=== PATIENT | female | born 1965 | race Caucasian/White ===

== ENCOUNTER 2017-11-28 13:19 | Inpatient (IN) | payer OTHER ==
[~2017-11-28] VITALS: Ht 162.6 cm; Wt 77.1 kg
[~2017-11-28 13:19] MED LIST: ACETAMINOPHEN-1 EAC1 PO; AMOXICILLIN500 M1 PO; ATENOLOL 100MG100 M2; ATENOLOL 100MG100 M2 PO; ATENOLOL 100MG100 MG PO; BACTRIM DS TAB1 EACH PO; ESKALITH300 MG; HYDROCODONE-AP1 EAC6 PO; IRON325 PO; KEFLEX500 M1 PO; LAMICTAL 25 MG25 MG PO; NORVASC 5 MG TAB5 MG; NORVASC 5 MG TAB5 MG PO; NORVASC5 MG PO; PAXIL20 MG; REQUIP1 MG PO; ROBAXIN500 MG PO; TRAZODONE 150150 M1; VISTARIL 25 MG25 M1; ZOLOFT 50 MG TA50 M1 PO
[2017-11-28 13:30] VITALS: BP 186/129
[2017-11-28 13:53] LABS: URINE BILIRUBIN NEGATIVE (Negative); URINE BLOOD 3+ (Negative); URINE CLARITY CLEAR; URINE COLOR YELLOW; URINE GLUCOSE-RANDOM NEGATIVE (Negative); URINE KETONES NEGATIVE (Negative); URINE LEUKOCYTES-REFLEX TRACE (Negative); URINE NITRITE-REFLEX NEGATIVE (Negative); URINE PROTEIN TRACE (Negative); URINE SPECIFIC GRAVITY 1.025 (1.005-1.030); URINE UROBILINOGEN 0.2 E.U./dl (0.2-1.0)
[2017-11-28 13:58] LABS: BACTERIA-REFLEX 1-9 Few /HPF (None Seen); CASTS None Seen /LPF (None Seen); CRYSTALS None Seen /LPF (None Seen); MUCUS None Seen strn/LPF (None Seen); SQUAMOUS 0-3 Few /LPF (0-3); URINE WBC-REFLEX 0-5 Rare /HPF (0-5)
[2017-11-28 14:00] LABS: AMP/METHAMP POSITIVE (Negative); BARBITURATES Negative (Negative); BENZODIAZEPINES Negative (Negative); COCAINE Negative (Negative); METHADONE Negative (Negative); OPIATES Negative (Negative); PCP Negative (Negative); THC Negative (Negative)
[2017-11-28 14:02] LABS: ABSOLUTE BASOPHILS 0.1 thou/uL (0.0-0.2); ABSOLUTE EOSINOPHILS 0.1 thou/uL (0.0-0.7); ABSOLUTE LYMPHOCYTES 1.7 thou/uL (0.8-5.3); ABSOLUTE MONOCYTES 0.5 thou/uL (0.0-1.2); ABSOLUTE NEUTROPHILS 5.6 thou/uL (1.6-8.1); BASOPHILS 0.9 %; EOSINOPHILS 1.2 %; HEMATOCRIT 33.7 % (37.0-47.0); HEMOGLOBIN 10.9 gm/dL (12.0-15.0); LYMPHOCYTES 21.5 %; MCH 23.8 pg (26.0-34.0); MCHC 32.3 g/dL (28.0-37.0); MCV 73.7 fL (80.0-100.0); MONOCYTES 6.6 %; MPV 7.9 fl. (7.2-11.1); NUCLEATED RBCS 0 /100WBC; PLATELET COUNT* 269 thou/uL (150-400); POLYS 69.8 %; RBC 4.57 mil/uL (4.20-5.00); RDW-CV 19.2 % (10.5-14.5)
[2017-11-28 14:10] LABS: ANION GAP 9 mmol/L (7-16); BUN 12 mg/dL (7-18); CALCIUM 8.2 mg/dL (8.5-10.1); CHLORIDE 104 mmol/L (98-107); CO2 25 mmol/L (21-32); CREATININE 0.9 mg/dL (0.6-1.3); GLUCOSE 136 mg/dL (70-99); POTASSIUM 3.6 mmol/L (3.5-5.1); SODIUM 138 mmol/L (136-145)
[2017-11-28 14:20] LABS: ALBUMIN 3.1 g/dL (3.4-5.0); ALKALINE PHOSPHATASE 225 U/L (46-116); LIPASE 142 U/L (73-393); SGOT 156 U/L (15-37); SGPT 197 U/L (30-65); TOTAL BILIRUBIN 0.5 mg/dL (<0.1-1.0); TOTAL PROTEIN 7.8 g/dL (6.4-8.2); TROPONIN-I LEVEL <0.06 ng/mL (<0.06)
--- NOTE | 2017-11-28 16:10 | EKG ---
[place] [address] ELECTROCARDIOGRAM REPORT Name: MARIOMONICA Go Room: [facility]#: [id number] Admission: 11/28/17 Attend Phys: Discharge: Date of : 63 Report #: [id number] THIS REPORT FOR: //name// [facility] ED Test Date: 2017-11-28 Test Time: 13:25:24 Pat Name: MONICA MARTIN Department: Room: Gender: F Counter Maker: NATY : 1965 Requested By: Cadence Reid Order Number: [id number] MD: Karan Porter Measurements Intervals [place] Rate: 93 P: 89 MA: 183 QRS: 32 QRSD: 92 T: 98 QT: 384 QTc: 478 Interpretive Statements Sinus rhythm Biatrial enlargement consider Anterior infarct, old Compared to ECG 08/07/2015 22:06:46 Left ventricular hypertrophy no longer present Electronically Signed On 11-28-2017 16:10:28 CDT by Karan Porter [email or web address] <ELECTRONICALLY SIGNED> By: Karan Porter MD, [facility] 11/28/17 1610 D: 045 1325 Karan Porter MD, FACC /EPI
[2017-11-28 16:43] VITALS: BP 150/87
[2017-11-28 17:00] VITALS: BP 156/91
--- NOTE | 2017-11-28 18:05 | NUR ---
VSS, ASSUMED CARE OF PT FROM ER, ASSESSMENT PERFROMED AND CHARTED, FALL PRECAUTIONS IN PLACE AND CALL LIGHT IN REACH, PT IS A&O4 AND ON 2L NC AND UP AD BARBARA, PT DENIES ANY PAIN AT THIS TIME, PT IS TRACING SR ON THE MONITOR AND HER GOAL IS TO IMPROVE BREATHING, WILL FOLLOW WITH PLAN OF CARE.
[2017-11-28 20:00] VITALS: BP 164/94
[2017-11-28 23:40] VITALS: BP 165/98
--- NOTE | 2017-11-29 01:54 | NUR ---
PT ALERT ORIENTED. O2 AT 2 LITERS N/C. NO SOB NOTED. TELEMETRY SHOWS SR. WILL CONTINUE TO MONITOR. PT SHOWED NURSE HER R THUMB WITH A SMALL SCRATCH <0.5 CM. PT STATED IT HURT. ANTIBIOTIC OINT ORDERED AND PLACED ON THUMB. WILL CONTINUE TO MONITOR.
[2017-11-29 03:47] VITALS: BP 169/100
[2017-11-29 04:53] LABS: ABSOLUTE BASOPHILS 0.1 thou/uL (0.0-0.2); ABSOLUTE EOSINOPHILS 0.2 thou/uL (0.0-0.7); ABSOLUTE LYMPHOCYTES 1.8 thou/uL (0.8-5.3); ABSOLUTE MONOCYTES 0.6 thou/uL (0.0-1.2); ABSOLUTE NEUTROPHILS 6.2 thou/uL (1.6-8.1); BASOPHILS 0.6 %; EOSINOPHILS 2.3 %; HEMATOCRIT 34.3 % (37.0-47.0); HEMOGLOBIN 11.1 gm/dL (12.0-15.0); LYMPHOCYTES 19.9 %; MCH 23.9 pg (26.0-34.0); MCHC 32.5 g/dL (28.0-37.0); MCV 73.7 fL (80.0-100.0); MONOCYTES 6.6 %; MPV 8.6 fl. (7.2-11.1); NUCLEATED RBCS 0 /100WBC; PLATELET COUNT* 272 thou/uL (150-400); POLYS 70.6 %; RBC 4.65 mil/uL (4.20-5.00); RDW-CV 19.3 % (10.5-14.5); WBC 8.8 thou/uL (4.0-11.0)
[2017-11-29 05:11] LABS: CALCIUM 8.4 mg/dL (8.5-10.1); CREATININE 0.9 mg/dL (0.6-1.3); POTASSIUM 3.3 mmol/L (3.5-5.1)
--- NOTE | 2017-11-29 07:04 | NUR ---
AM K+ LEVEL 3.3. ELECTROLYTE REPLACEMENT ORDERED.
[2017-11-29 07:07] LABS: HEPATITIS B SURFACE AG Negative (Negative)
[2017-11-29 08:00] VITALS: BP 143/84
[2017-11-29 10:59] LABS: TROPONIN-I LEVEL <0.06 ng/mL (<0.06)
[2017-11-29 11:40] VITALS: BP 151/88
[2017-11-29 12:10] LABS: ALBUMIN 3.1 g/dL (3.4-5.0); DIRECT BILIRUBIN 0.2 mg/dL (<0.1-0.3); TOTAL BILIRUBIN 0.5 mg/dL (<0.1-1.0); TOTAL PROTEIN 7.4 g/dL (6.4-8.2)
--- NOTE | 2017-11-29 12:29 | NUR ---
PT REQUESTED TO DISCHARGE. DR MANJARREZ CONTACTED AND STATED PT MAY LEAVE AMA. PT EDUCATED ON THE RISK OF LEAVING AGAINST MEDICAL ADVICE. PT STATED 'I DON'T CARE, JUST GET THIS IV OUT OF ME.' IV AND SIGN PAINTER HELPER REMOVED. PT TOOK ALL PERSONAL BELONGINGS WHEN SHE LEFT. THIS NURSE ENCOURAGED PT TO STAY AND AT LEAST COMPLETE ORDERED MRI, BUT PT REFUSED. PT LEFT THE FLOOR AT 1234.
--- NOTE | 2017-11-29 14:43 | 2DMMODE ---
[place] [address] 2 D/M-MODE ECHOCARDIOGRAM Name: MARIOMONICA R Room: [address] IN [facility]#: [id number] Admission: 11/28/17 Attend Phys: Jamie Garcia, Discharge: 11/29/17 Date of : 63 Date of Service: 11/29/17 1442 Report #: [id number] THIS REPORT FOR: //name// APPROVED REPORT Study performed: 11/29/2017 09:51:39 EXAM: Comprehensive 2D, Doppler, and color-flow Echocardiogram Patient Location: In-Patient Room #: [facility] Status: routine BSA: 1.85 HR: 84 bpm BP: 147/76 mmHg Rhythm: NSR Other Information Study Quality: Good Indications Congestive Heart Failure 2D Dimensions LVEF(%): 52.47 (>50%) IVSd: 17.17 (7-11mm) LVOT Diam: 19.58 (18-24mm) LVDd: 45.32 mm PWd: 12.38 (7-11mm) Ascending Ao: 33.05 (22-36mm) LVDs: 33.17 (25-40mm) Aortic Root: 30.13 mm Tran's LVEF: 52.47 % Volumes Left Atrial Volume (Systole) LA ESV Index: 56.40 mL/m2 Aortic Valve AoV Peak Carlos Manuel.: 1.49 m/s AO Peak Gr.: 8.84 mmHg LVOT Max P.29 mmHg AO Mean Gr.: 5.56 mmHg LVOT Mean P.27 mmHg LVOT Max V: 1.25 m/s AO V2 VTI: 24.05 cm LVOT Mean V: 0.84 m/s CHACHA (VTI): 2.69 cm2 LVOT V1 VTI: 21.51 cm Mitral Valve E/A Ratio: 1.44 [place] [address] 2 D/M-MODE ECHOCARDIOGRAM Name: MARIOMONICA R Room: [address]#: [id number] Admission: 11/28/17 Attend Phys: Jamie Garcia, Discharge: 11/29/17 Date of : 63 Date of Service: 11/29/17 1442 Report #: [id number] MV Decel. Time: 211.34 ms MV E Max Carlos Manuel.: 1.17 m/s MV PHT: 61.29 ms MVA (PHT): 3.59 cm2 TDI E/Lateral E': 14.63 E/Medial E': 14.63 Medial E' Carlos Manuel.: 0.08 m/s Lateral E' Carlos Manuel.: 0.08 m/s Pulmonary Valve PV Peak Carlos Manuel.: 1.19 m/s PV Peak Gr.: 5.62 mmHg Tricuspid Valve TR Peak Gr.: 42.70 mmHg RVSP: 47.00 mmHg Left Ventricle The left ventricle is normal size. There is normal LV segmental wall motion. Mild concentric left ventricular hypertrophy. Left ventricular systolic function is normal. LVEF is 55-60%. Transmitral Doppler flow pattern suggests impaired LV relaxation. Right Ventricle Right ventricle is mildly dilated. The right ventricular systolic function is normal. Atria Left atrium is moderately dilated. Right atrium is mildly dilated. Aortic Valve Mild aortic valve sclerosis. Mild aortic regurgitation. There is no aortic valvular stenosis. Mitral Valve There is mitral annular calcification. Moderate mitral regurgitation. No evidence of mitral valve stenosis. Tricuspid Valve The tricuspid valve is normal in structure. Trace tricuspid regurgitation. The RVSP is 45-50 mmHg. Pulmonic Valve The pulmonary valve is normal in structure. Trace [place] [address] 2 D/M-MODE ECHOCARDIOGRAM Name: MONICA MARTIN Room: [address] IN [facility]#: [id number] Admission: 11/28/17 Attend Phys: Jamie Garcia, Discharge: 11/29/17 Date of : 63 Date of Service: 11/29/17 1442 Report #: [id number] Great Vessels The aortic root is normal in size. IVC is normal in size and collapses with >50% inspiration Pericardium There is no pericardial effusion. <Conclusion> The left ventricle is normal size. Mild concentric left ventricular hypertrophy. Left ventricular systolic function is normal. LVEF is 55-60%. Transmitral Doppler flow pattern suggests impaired LV relaxation. Right ventricle is mildly dilated. Left atrium is moderately dilated. Right atrium is mildly dilated. Mild aortic valve sclerosis. Mild aortic regurgitation. There is mitral annular calcification. Moderate mitral regurgitation. Trace tricuspid regurgitation. The RVSP is 45-50 mmHg. <ELECTRONICALLY SIGNED> By: Sathish Cohen MD, FACC 11/29/17 1442 1442 1442 Sathish Cohen MD, FACC /INF
== END 2017-11-29 12:34 | disposition home or self-care (01) | DRG 196 ==
LOC: M.ERS 13:19 → M.TBA-ER 16:06 → M.2W 16:06
PROVIDERS: Personal Emergency Response Attendant; ADMIT Internal Medicine
DX: J84.89 Other specified interstitial pulmonary diseases (principal); J18.9 Pneumonia, unspecified organism; I10 Essential (primary) hypertension; F31.9 Bipolar disorder, unspecified; G25.81 Restless legs syndrome; F17.210 Nicotine dependence, cigarettes, uncomplicated; J44.9 Chronic obstructive pulmonary disease, unspecified; K75.9 Inflammatory liver disease, unspecified; I16.0 Hypertensive urgency; K76.89 Other specified diseases of liver; Z79.899 Other long term (current) drug therapy

== ENCOUNTER 2018-06-14 21:02 | Emergency (ER) | payer OTHER ==
[~2018-06-14] VITALS: Ht 160 cm; Wt 81.6 kg
[2018-06-14 21:23] LABS: ABSOLUTE BASOPHILS 0.1 thou/uL (0.0-0.2); ABSOLUTE EOSINOPHILS 0.2 thou/uL (0.0-0.7); ABSOLUTE LYMPHOCYTES 2.1 thou/uL (0.8-5.3); ABSOLUTE MONOCYTES 0.7 thou/uL (0.0-1.2); ABSOLUTE NEUTROPHILS 5.8 thou/uL (1.6-8.1); BASOPHILS 1.5 %; EOSINOPHILS 2.3 %; HEMATOCRIT 40.5 % (37.0-47.0); HEMOGLOBIN 13.3 gm/dL (12.0-15.0); LYMPHOCYTES 23.8 %; MCH 27.5 pg (26.0-34.0); MCHC 32.9 g/dL (28.0-37.0); MCV 83.7 fL (80.0-100.0); MONOCYTES 7.4 %; MPV 8.3 fl. (7.2-11.1); NUCLEATED RBCS 0 /100WBC; PLATELET COUNT* 221 thou/uL (150-400); RBC 4.83 mil/uL (4.20-5.00); RDW-CV 16.9 % (10.5-14.5); WBC 8.9 thou/uL (4.0-11.0)
[2018-06-14 21:35] LABS: INR 1.1; PROTIME 11.2 Seconds (9.20-11.50)
[2018-06-14 21:36] LABS: ANION GAP 12 mmol/L (7-16); BUN 19 mg/dL (7-18); CALCIUM 9.5 mg/dL (8.5-10.1); CHLORIDE 103 mmol/L (98-107); CO2 26 mmol/L (21-32); CREATININE 0.8 mg/dL (0.6-1.3); GLUCOSE 127 mg/dL (70-99); POTASSIUM 3.7 mmol/L (3.5-5.1); SODIUM 141 mmol/L (136-145)
[2018-06-14 21:55] LABS: ALBUMIN 3.4 g/dL (3.4-5.0); ALKALINE PHOSPHATASE 174 U/L (46-116); CK-MB MASS 4.1 ng/mL (<0.5-3.6); LIPASE 205 U/L (73-393); MAGNESIUM 1.8 mg/dL (1.8-2.4); NT-PRO BRAIN NAT PEPTIDE 1138 pg/mL (<300); SGOT 82 U/L (15-37); SGPT 118 U/L (30-65); TOTAL BILIRUBIN 0.5 mg/dL (<0.1-1.0); TOTAL PROTEIN 7.3 g/dL (6.4-8.2); TROPONIN-I LEVEL <0.06 ng/mL (<0.06)
[2018-06-14] MEDS ORDERED: ZESTORETIC 20-1 EACH PO (23:06)
[2018-06-14 23:15] VITALS: BP 187/127
--- NOTE | 2018-06-15 17:26 | EKG ---
[place] [address] ELECTROCARDIOGRAM REPORT Name: MONICA MARTIN Room: [facility]#: [id number] Admission: 06/14/18 Attend Phys: Discharge: 06/14/18 Date of : 63 Report #: [id number] THIS REPORT FOR: //name// [facility] ED Test Date: 2018-06-14 Test Time: 21:09:16 Pat Name: MONICA MARTIN Department: Room: Gender: F Presentation Specialist: ZURI : 1965 Requested By: Shankar Mills Order Number: [id number] MD: Sathish Cohen Measurements Intervals [place] Rate: 86 P: 66 IN: 159 QRS: 26 QRSD: 103 T: 75 QT: 418 QTc: 500 Interpretive Statements Sinus rhythm Biatrial enlargement Left ventricular hypertrophy ST elev, probable normal early repol pattern Borderline prolonged QT interval Compared to ECG 11/28/2017 13:25:24 Left ventricular hypertrophy now present ST (T wave) deviation now present Myocardial infarct finding no longer present Electronically Signed On 06-15-2018 17:26:16 DIAMOND WHEEL EDGER by Sathish Cohen [email or web address] <ELECTRONICALLY SIGNED> By: Sathish Cohen MD, FACC 06/15/18 1726 08 08 Sathish Cohen MD, FACC /EPI
== END 2018-06-14 23:16 | disposition home or self-care (01) ==
LOC: M.ERS 21:02
PROVIDERS: Family Medicine
DX: R00.2 Palpitations (principal); R05 Cough; F17.210 Nicotine dependence, cigarettes, uncomplicated; I10 Essential (primary) hypertension; F31.9 Bipolar disorder, unspecified; G25.81 Restless legs syndrome; M19.90 Unspecified osteoarthritis, unspecified site; Z98.890 Other specified postprocedural states; Z90.13 Acquired absence of bilateral breasts and nipples

== ENCOUNTER 2018-10-03 22:34 | Emergency (ER) | payer OTHER ==
[~2018-10-03] VITALS: Ht 162.6 cm; Wt 79.4 kg
[~2018-10-03 22:34] MED LIST changes: +ZESTORETIC 20-1 EACH PO
[2018-10-03] MEDS ORDERED: HYDROCHLOROTHIA25 M2 PO (22:40)
[2018-10-03] MEDS ORDERED: ACETAMINOPHEN-1 EAC1 PO (23:25)
[2018-10-03] MEDS ORDERED: BACTRIM DS TAB1 EACH PO (23:25)
[2018-10-03] MEDS ORDERED: KEFLEX500 M1 PO (23:25)
[2018-10-03 23:43] VITALS: BP 166/89
== END 2018-10-03 23:45 | disposition home or self-care (01) ==
LOC: M.ERS 22:34
DX: L02.01 Cutaneous abscess of face (principal); L03.211 Cellulitis of face; I10 Essential (primary) hypertension; F31.9 Bipolar disorder, unspecified; M19.90 Unspecified osteoarthritis, unspecified site; Z98.890 Other specified postprocedural states; F17.210 Nicotine dependence, cigarettes, uncomplicated

== ENCOUNTER 2018-10-06 16:16 | Inpatient (IN) | payer OTHER ==
[~2018-10-06] VITALS: Ht 162.6 cm; Wt 85.0 kg
[~2018-10-06 16:16] MED LIST changes: +HYDROCHLOROTHIA25 M2 PO
[2018-10-06 16:23] VITALS: BP 157/94
[2018-10-06 17:11] LABS: ABSOLUTE BASOPHILS 0.1 thou/uL (0.0-0.2); ABSOLUTE EOSINOPHILS 0.4 thou/uL (0.0-0.7); ABSOLUTE LYMPHOCYTES 2.1 thou/uL (0.8-5.3); ABSOLUTE MONOCYTES 0.5 thou/uL (0.0-1.2); ABSOLUTE NEUTROPHILS 6.4 thou/uL (1.6-8.1); BASOPHILS 1.2 %; HEMATOCRIT 40.2 % (37.0-47.0); HEMOGLOBIN 13.4 gm/dL (12.0-15.0); LYMPHOCYTES 21.9 %; MCH 27.6 pg (26.0-34.0); MCHC 33.4 g/dL (28.0-37.0); MCV 82.6 fL (80.0-100.0); MONOCYTES 5.7 %; MPV 7.9 fl. (7.2-11.1); NUCLEATED RBCS 0 /100WBC; PLATELET COUNT* 360 thou/uL (150-400); POLYS 67.2 %; RBC 4.86 mil/uL (4.20-5.00); RDW-CV 16.5 % (10.5-14.5); WBC 9.6 thou/uL (4.0-11.0)
[2018-10-06 17:29] LABS: URINE BILIRUBIN NEGATIVE (Negative); URINE BLOOD 3+ (Negative); URINE CLARITY CLOUDY; URINE COLOR YELLOW; URINE GLUCOSE-RANDOM NEGATIVE (Negative); URINE KETONES NEGATIVE (Negative); URINE LEUKOCYTES-REFLEX 1+ (Negative); URINE NITRITE-REFLEX NEGATIVE (Negative); URINE PROTEIN 1+ (Negative); URINE SPECIFIC GRAVITY 1.025 (1.005-1.030); URINE UROBILINOGEN 0.2 E.U./dl (0.2-1.0)
[2018-10-06 17:31] LABS: ALBUMIN 3.1 g/dL (3.4-5.0); ALKALINE PHOSPHATASE 162 U/L (46-116); ANION GAP 8 mmol/L (7-16); BUN 13 mg/dL (7-18); CALCIUM 9.3 mg/dL (8.5-10.1); CHLORIDE 101 mmol/L (98-107); CO2 27 mmol/L (21-32); CREATININE 0.9 mg/dL (0.6-1.3); GLUCOSE 120 mg/dL (70-99); POTASSIUM 3.8 mmol/L (3.5-5.1); SGOT 32 U/L (15-37); SGPT 47 U/L (30-65); SODIUM 136 mmol/L (136-145); TOTAL BILIRUBIN 0.3 mg/dL (<0.1-1.0); TOTAL PROTEIN 8.8 g/dL (6.4-8.2); TROPONIN-I LEVEL <0.06 ng/mL (<0.06)
[2018-10-06 17:35] LABS: AMP/METHAMP POSITIVE (Negative); BARBITURATES Negative (Negative); BENZODIAZEPINES Negative (Negative); COCAINE Negative (Negative); METHADONE Negative (Negative); OPIATES POSITIVE (Negative); PCP Negative (Negative); THC Negative (Negative)
[2018-10-06 17:46] LABS: URINE RBC >20 Many /HPF (0-2)
[2018-10-06 17:47] LABS: URINE WBC-REFLEX 6-15 Few /HPF (0-5)
[2018-10-06 17:48] LABS: CASTS None Seen /LPF (None Seen); MUCUS None Seen strn/LPF (None Seen); SQUAMOUS 0-3 Few /LPF (0-3)
[2018-10-06 17:49] LABS: BACTERIA-REFLEX 1-9 Few /HPF (None Seen); CRYSTALS None Seen /LPF (None Seen)
[2018-10-06 21:19] VITALS: BP 154/88
[2018-10-07] VITALS: BP 152/85
[2018-10-07 10:20] VITALS: BP 154/88
[2018-10-07 15:30] VITALS: BP 180/100
[2018-10-07 20:15] VITALS: BP 156/90
[2018-10-08 01:11] VITALS: BP 182/92
[2018-10-08 04:07] LABS: MCH 27.7 pg (26.0-34.0); MCHC 33.3 g/dL (28.0-37.0); MCV 83.2 fL (80.0-100.0); MPV 7.9 fl. (7.2-11.1); RBC 4.69 mil/uL (4.20-5.00); RDW-CV 16.4 % (10.5-14.5); WBC 7.1 thou/uL (4.0-11.0)
[2018-10-08 04:23] LABS: ALBUMIN 2.7 g/dL (3.4-5.0); CALCIUM 9.4 mg/dL (8.5-10.1); CREATININE 0.8 mg/dL (0.6-1.3); MAGNESIUM 1.9 mg/dL (1.8-2.4); POTASSIUM 4.3 mmol/L (3.5-5.1); TOTAL BILIRUBIN 0.4 mg/dL (<0.1-1.0); TOTAL PROTEIN 7.4 g/dL (6.4-8.2)
[2018-10-08 07:50] VITALS: BP 180/87
--- NOTE | 2018-10-08 15:00 | EKG ---
[place] [address] ELECTROCARDIOGRAM REPORT Name: MONICA MARTIN Room: [address] ADM IN .R.#: [id number] Admission: 10/06/18 Attend Phys: Marie Barnes MD Discharge: Date of : 63 Report #: [id number] THIS REPORT FOR: //name// [facility] ED Test Date: 2018-10-06 Test Time: 16:43:53 Pat Name: MONICA MARTIN Department: Room: [facility] Gender: F Reducing Salon Attendant: Tim LION : 1965 Requested By: Torri Grimaldo Order Number: [id number] MD: Sathish Cohen Measurements Intervals [place] Rate: 94 P: 80 ME: 148 QRS: 30 QRSD: 105 T: 63 QT: 400 QTc: 501 Interpretive Statements Sinus tachycardia Atrial premature complexes Biatrial enlargement Left ventricular hypertrophy Borderline prolonged QT interval Compared to ECG 06/14/2018 21:09:16 Atrial premature complex(es) now present Sinus rhythm no longer present ST (T wave) deviation no longer present Electronically Signed On 10-08-2018 15:00:37 CDT by Sathish Cohen [email or web address] <ELECTRONICALLY SIGNED> By: Sathish Cohen MD, FACC 10/08/18 1500 1643 1643 Sathish Cohen MD, FACC /EPI
[2018-10-08 17:16] VITALS: BP 179/94
--- NOTE | 2018-10-08 19:46 | CON ---
[address] [address] CONSULTATION Name: MONICA MARTIN Go Room: [address] ADM IN M.R.#: [id number] Admission: 10/06/18 Attend Phys: Marie Barnes MD Discharge: Date of : 63 Report #: [id number] THIS REPORT FOR: //name// CC: THALIA physician/PCP Marie Barnes DATE OF SERVICE: 10/07/2018 REASON FOR CONSULTATION: I was asked to evaluate concerning right facial abscess. HISTORY OF PRESENT ILLNESS: The patient was a 52-year-old who presented on 10/03/2018 with right facial pain. She had a small pimple to her baptist, and she placed a pin in the region to drain it, subsequently developed increased pain and swelling. Facial swelling progressed, and she went to the Emergency Room for further intervention. She had had the area lanced. Cultures are now growing MRSA. She was treated with Bactrim and cephalexin. The swelling worsened, and she returned on 10/06/2018. She was placed on vancomycin and ceftriaxone. No fever, chills or sweats. Pain is significant. She also reports a history of methamphetamine use intravenously. She is an active user. ALLERGIES: None. MEDICATIONS: As noted on MAR including vancomycin and ceftriaxone. PAST MEDICAL HISTORY: C-sections, breast reduction, hypertension, bipolar disorder, basal cell carcinoma, restless leg syndrome, carpal tunnel syndrome, arthritis. FAMILY HISTORY: Noncontributory. SOCIAL HISTORY: She is a smoker of cigarettes, daily alcohol use and recreational drug use. REVIEW OF SYSTEMS: No cardiopulmonary, GI or complaints. PHYSICAL EXAMINATION: VITAL SIGNS: Afebrile and hemodynamically stable. Alert and cooperative. HEENT: Right facial swelling, mostly over the right frontotemporal region. There was a fluctuant area, which was exquisitely tender. Surrounding erythema. Edema in the periorbital region. Extraocular movements intact. Pupils equal, round and reactive to light. No conjunctival injection or scleral icterus. Mouth without mucositis or lesion. NECK: Supple. LUNGS: Clear. HEART: Regular, [place] [address] CONSULTATION Name: MONICA MARTIN Room: [address] IN [facility]#: [id number] Admission: 10/06/18 Attend Phys: Marie Barnes MD Discharge: Date of : 63 Report #: [id number] EXTREMITIES: Had track romo to the left forearm. LABORATORY STUDIES: CT scan of the head showed no intracranial abnormality with right periorbital soft tissue swelling. Facial bones showed the same with no definite focal abscess. She also had some mucosal changes in the right maxillary, ethmoid with small air fluid level in the maxillary sinus. Blood cultures are negative today. Drug screen positive for methamphetamines, opiates and alcohol. Creatinine 0.9. Liver function test normal. Hemoglobin 13.4, WBC 9.6 and platelet count 360,000. IMPRESSION: 1. A 52-year-old with right facial abscess, MRSA. 2. IV drug use. 3. Right maxillary sinusitis. RECOMMENDATION: 1. We will continue vancomycin. Warm compress to her right face and elevation. If no improvement, we will need incision and drainage. 2. Add decongestants and mucolytics. <ELECTRONICALLY SIGNED> By: Rj Stout MD 10/08/18 1946 1638 1522Dantionette Stout MD /nt
[2018-10-09] VITALS: BP 178/90
[2018-10-09 04:33] LABS: ABSOLUTE BASOPHILS 0.1 thou/uL (0.0-0.2); ABSOLUTE EOSINOPHILS 0.5 thou/uL (0.0-0.7); ABSOLUTE LYMPHOCYTES 2.3 thou/uL (0.8-5.3); ABSOLUTE MONOCYTES 0.7 thou/uL (0.0-1.2); BASOPHILS 1.3 %; EOSINOPHILS 6.2 %; HEMATOCRIT 41.1 % (37.0-47.0); HEMOGLOBIN 13.8 gm/dL (12.0-15.0); LYMPHOCYTES 30.2 %; MCH 27.9 pg (26.0-34.0); MCHC 33.6 g/dL (28.0-37.0); MCV 82.9 fL (80.0-100.0); MONOCYTES 9.1 %; MPV 7.9 fl. (7.2-11.1); NUCLEATED RBCS 0 /100WBC; PLATELET COUNT* 343 thou/uL (150-400); POLYS 53.2 %; RBC 4.95 mil/uL (4.20-5.00); RDW-CV 16.2 % (10.5-14.5); WBC 7.5 thou/uL (4.0-11.0)
[2018-10-09 04:53] LABS: CALCIUM 9.3 mg/dL (8.5-10.1); CREATININE 0.8 mg/dL (0.6-1.3); MAGNESIUM 1.9 mg/dL (1.8-2.4); PHOSPHORUS* 4.3 mg/dL (2.5-4.9); POTASSIUM 4.1 mmol/L (3.5-5.1)
[2018-10-09 07:30] VITALS: BP 176/99
[2018-10-09 10:20] VITALS: BP 176/99
[2018-10-09 13:02] LABS: CALCIUM 9.6 mg/dL (8.5-10.1); CREATININE 0.8 mg/dL (0.6-1.3); POTASSIUM 4.3 mmol/L (3.5-5.1)
[2018-10-09 14:25] VITALS: BP 146/92
--- NOTE | 2018-10-09 15:15 | EKG ---
[place] [address] ELECTROCARDIOGRAM REPORT Name: MARIA E MARTINNathan Stiles Room: [address] ADM IN .R.#: [id number] Admission: 10/06/18 Attend Phys: Marie Barnes MD Discharge: Date of : 63 Report #: [id number] THIS REPORT FOR: //name// [facility] Test Date: 2018-10-09 Test Time: 11:59:41 Pat Name: MONICA MARTIN Department: Room: [facility] Gender: F [employer] System Director: : 1965 Requested By: Meaghan Cortés Order Number: [id number] Reading MD: Karan Porter Measurements Intervals [place] Rate: 83 P: 62 AR: 150 QRS: 22 QRSD: 101 T: 62 QT: 440 QTc: 517 Interpretive Statements Sinus rhythm Supraventricular complexes KIMI, consider biatrial enlargement Left ventricular hypertrophy ST elev, probable normal early repol pattern Prolonged QT interval Compared to ECG 10/06/2018 16:43:53 no change Electronically Signed On 10-09-2018 15:15:21 CDT by Karan Porter [email or web address] <ELECTRONICALLY SIGNED> By: Karan Porter MD, FAC 10/09/18 1515 1159 1159 Karan Porter MD, [facility] /EPI
--- NOTE | 2018-10-09 16:11 | 2DMMODE ---
[place] [address] 2 D/M-MODE ECHOCARDIOGRAM Name: MARIOMARIA E MARCELINOI Room: [address] IN [facility]#: [id number] Admission: 10/06/18 Attend Phys: Marie Barnes, Discharge: Date of : 63 Date of Service: 10/09/18 1611 Report #: [id number] THIS REPORT FOR: //name// APPROVED REPORT Study performed: 10/09/2018 14:52:27 EXAM: Comprehensive 2D, Doppler, and color-flow Echocardiogram Patient Location: In-Patient Room #: [facility] Status: routine BSA: 1.85 HR: 85 bpm BP: 176/99 mmHg Rhythm: NSR Other Information Study Quality: Good Indications Abnormal ECG Palpitations 2D Dimensions IVSd: 14.66 (7-11mm) LVOT Diam: 18.91 (18-24mm) LVDd: 48.25 mm PWd: 11.40 (7-11mm) Ascending Ao: 31.25 (22-36mm) LVDs: 33.73 (25-40mm) Aortic Root: 30.92 mm Volumes Left Atrial Volume (Systole) LA ESV Index: 41.20 mL/m2 Aortic Valve AoV Peak Carlos Manuel.: 1.54 m/s AO Peak Gr.: 9.49 mmHg LVOT Max P.02 mmHg AO Mean Gr.: 5.58 mmHg LVOT Mean P.01 mmHg LVOT Max V: 1.23 m/s AO V2 VTI: 22.88 cm LVOT Mean V: 0.80 m/s CHACHA (VTI): 2.21 cm2 LVOT V1 VTI: 17.98 cm TDI Medial E' Carlos Manuel.: 0.06 m/s Lateral E' Carlos Manuel.: 0.09 m/[place] [address] 2 D/M-MODE ECHOCARDIOGRAM Name: MONICA MARTIN Room: [address] IN .R.#: [id number] Admission: 10/06/18 Attend Phys: Marie Barnes, Discharge: Date of : 63 Date of Service: 10/09/18 1611 Report #: [id number] Pulmonary Valve PV Peak Carlos Manuel.: 1.01 m/s PV Peak Gr.: 4.12 mmHg Left Ventricle The left ventricle is normal size. There is normal LV segmental wall motion. Moderate concentric left ventricular hypertrophy. Left ventricular systolic function is normal. The left ventricular ejection fraction is within the normal range. LVEF is 65-70%. The left ventricular diastolic function is normal. Right Ventricle The right ventricle is normal size. The right ventricular systolic function is normal. Atria Left atrium is moderately dilated. The right atrium size is normal. Aortic Valve The aortic valve is normal in structure. No aortic regurgitation is present. There is no aortic valvular stenosis. Mitral Valve The mitral valve is normal in structure. Moderate mitral regurgitation. No evidence of mitral valve stenosis. Tricuspid Valve The tricuspid valve is normal in structure. Trace tricuspid regurgitation. Unable to assess PA pressure. Pulmonic Valve The pulmonary valve is normal in structure. There is no pulmonic valvular regurgitation. Great Vessels The aortic root is normal in size. IVC is normal in size and collapses >50% with inspiration. Pericardium There is no pericardial effusion. <Conclusion> Moderate concentric left ventricular hypertrophy. LVEF is 65-70%. [place] [address] 2 D/M-MODE ECHOCARDIOGRAM Name: MONICA MARTIN Room: [address] IN .R.#: [id number] Admission: 10/06/18 Attend Phys: Marie Barnes, Discharge: Date of : 63 Date of Service: 10/09/181610 Report #: [id number] Left atrium is moderately dilated. Moderate mitral regurgitation. <ELECTRONICALLY SIGNED> By: Karan Porter MD, [facility] 10/09/181610 10 1611 Karan Porter MD, FACC /INF
[2018-10-09 19:50] VITALS: BP 164/89
[2018-10-10] VITALS (8 sets, daily range): BP systolic 154–182; BP diastolic 92–117
--- NOTE | 2018-10-10 15:49 | OP ---
[address] [address] OPERATIVE REPORT Name: MONICA MARTIN Room: [address] IN M.R.#: [id number] Admission: 10/06/18 Attend Phys: Marie Barnes MD Discharge: Date of : 63 Report #: [id number] THIS REPORT FOR: //name// CC: [facility] physician/PCP Marie Barnes DATE OF SERVICE: 10/09/2018 PREOPERATIVE DIAGNOSIS: Methicillin-resistant Staphylococcus aureus abscess, right face. POSTOPERATIVE DIAGNOSIS: Methicillin-resistant Staphylococcus aureus abscess, right face. SURGEON: Meaghan Cortés DO. CO-SURGEON: Frantz Wilks DO, PGY2. ANESTHESIA: General and local. OPERATION PERFORMED: Incision and drainage of abscess, right face, MRSA positive. ESTIMATED BLOOD LOSS: 5 mL. SPECIMENS REMOVED: None. COMPLICATIONS: None. CONDITION: Stable. DISPOSITION: PACU to return to floor. INDICATIONS FOR PROCEDURE: The patient is a pleasant 52-year-old female presented with a chief complaint of right facial pain and swelling. The patient had incision and drainage of abscess done at right temporal region and was started on vancomycin. Wound cultures exhibited MRSA. The patient continued to have a 3 x 3 cm erythematous, inflamed, fluctuant, indurated cellulitis and infection of the right temporal region. Decision was made to perform incision and drainage in the operating room due to patient unable to tolerate I and D at the bedside. A full informed written consent was obtained. Full description of procedure, alternative, risks and possible complications include but not limited to bleeding, infection, postoperative pain, scarring, recurrence, need for further drainage. The patient voiced understanding of the risks and agreed to proceed with surgery. [address] [address] OPERATIVE REPORT Name: MONICA MARTIN Room: [address] IN R.#: [id number] Admission: 10/06/18 Attend Phys: Marie Barnes MD Discharge: Date of : 63 Report #: [id number] OPERATIVE TECHNIQUE: The patient was again seen and examined preop holding. Fully informed written consent was then obtained again full discussion of procedure, alternatives, risks and possible complications. The patient again voiced understanding risks. The patient had received a scheduled vancomycin this morning. No further preoperative antibiotics were given. The patient was subsequently transported to the operating room suite, placed in the supine position on the operating room table. At that time, general anesthesia was achieved using LMA. Bilateral lower extremity SCDs were placed at the calves. Bovie pad was placed in right lateral thigh. All extremities and joints were padded and protected. Arms were tucked at the patient's side. The patient was prepped and draped using standard sterile fashion. Timeout was performed prior to onset of procedure, began by making a 1.5-2 cm incision after local injection of 0.5% Marcaine 6 mL. After incision was made, there was drainage of abscess purulent bloody fluid. No cultures were taken as it was already proven MRSA. The loculations were broken up using a hemostat. The area was irrigated using normal saline and packed with quarter inch iodoform gauze. The patient tolerated the procedure well and was extubated in the operating room and transferred to PACU in stable condition after a brief recovery from Anesthesia with plan to return to floor for ongoing care. <ELECTRONICALLY SIGNED> By: Toy Wilks DO 10/10/18 1549 1126 1401Lukterri Wilks DO /nt
--- NOTE | 2018-10-10 18:02 | CON ---
[address] [address] CONSULTATION Name: MARIOMONICA R Room: [address] ADM IN M.R.#: [id number] Admission: 10/06/18 Attend Phys: Marie Barnes MD Discharge: Date of : 63 Report #: [id number] THIS REPORT FOR: //name// CC: THALIA physician/PCP Marie Barnes DATE OF SERVICE: 10/09/2018 CARDIOLOGY CONSULTATION HISTORY OF PRESENT ILLNESS: The patient is a 52-year-old single white female who I was asked to see in the hospital today after she apparently was tachycardic. The history was obtained from the patient. The patient has been here to [place] before. She was admitted here in October with bronchitis. However, she has no other history of heart disease. Recently, she noticed an abscess on her forehead. She was admitted and placed on antibiotics. Today, she underwent I and D in Surgery. In the recovery room, she was noted to be tachycardic with heart rates of approximately 150 on the monitor. Cardiology consultation was requested. She was given IV Cardizem 10 mg. She is not very active, does note episodes of shortness of breath. She also has episodes where heart rate will increase, but she has had no syncope. PAST MEDICAL HISTORY: She has had previous breast reduction, stent placed in the urethra at [facility] and kidney stone removal at [place]. She has a history of hypertension. MEDICATIONS: Include lisinopril and hydrochlorothiazide. ALLERGIES: She has no known drug allergies. FAMILY HISTORY: Heart disease runs in her family. SOCIAL HISTORY: She is , lives with a friend here in [place]. She is not working at this time. She has no medical insurance. She smokes a few cigarettes a day, has a few drinks a day. She has a history of IV methamphetamine use in the past. She has also smoked crack cocaine in the past. REVIEW OF SYSTEMS: There is no history of stroke, asthma, peptic ulcer disease or liver disease. She has had a basal cell carcinoma removed in the past. She has a history of bipolar disorder; she no longer sees a psychiatrist. She was on lithium in the past. PHYSICAL EXAMINATION: GENERAL: Revealed a middle-aged female lying in a stretcher. She appeared in no acute distress. VITAL SIGNS: She has a blood pressure of 160/90, pulse 60. [place] [address] CONSULTATION Name: MONICA MARTIN Room: [address]#: [id number] Admission: 10/06/18 Attend Phys: Marie Barnes MD Discharge: Date of : 63 Report #: [id number] HEENT: She is anicteric, conjunctivae are pink. Mucous membranes are moist. NECK: Neck veins do not appear distended. Neck is supple. CHEST: Clear to auscultation. CARDIAC EXAMINATION: Regular rate and rhythm, without murmur. ABDOMEN: Soft. EXTREMITIES: Had no edema. Dorsalis pedis pulse 2+ bilaterally. SKIN: Warm, dry. NEUROLOGICAL EXAMINATION: Nonfocal. LYMPH EXAMINATION: No adenopathy. MUSCULOSKELETAL EXAMINATION: No joint effusion. RADIOLOGICAL DATA: ECG shows a sinus rhythm, nonspecific ST-segment change, occasional PACs noted. LABORATORY DATA: Her workup so far, she actually had an echocardiogram done in October that showed left ventricular hypertrophy, ejection fraction 60%, right ventricle appeared dilated, left atrial enlargement, aortic sclerosis and moderate mitral regurgitation. Her CT scan of the chest done last June showed no pulmonary embolus, small nodule, some atelectasis and mild cardiomegaly. Her lab work, sodium 140, creatinine 0.8. Liver function studies: Alkaline phosphatase 188, SGPT 103. Her white blood cell count 7.5, hemoglobin 13.8. IMPRESSION AND RECOMMENDATIONS: 1. Palpitations. We will monitor for any arrhythmia. 2. Recent incision and drainage of an abscess on her forehead. 3. History of kidney stones. 4. Hypertension. The patient on RAY inhibitor and diuretic. 5. Tobacco abuse. 6. History of IV drug abuse. 7. History of bipolar disorder. <ELECTRONICALLY SIGNED> By: Karan Porter MD, FACC 10/10/18 1802 1302 0316Davidavid Porter MD, FAC /nt
[2018-10-11] VITALS: BP 154/93
[2018-10-11 04:00] VITALS: BP 157/79
[2018-10-11 08:00] VITALS: BP 154/92
[2018-10-11] MEDS ORDERED: BACTRIM DS TAB1 EACH PO (11:34)
[2018-10-11 12:00] VITALS: BP 148/95
[2018-10-11] MEDS ORDERED: IBUPROFEN 600600 M1 PO (12:16)
== END 2018-10-11 15:47 | disposition home or self-care (01) | DRG 580 ==
LOC: M.ERS 16:16 → M.TBA-ER 18:35 → M.3W 18:35 → M.2W 10-09 13:58
PROVIDERS: Nurse Practitioner Family; Surgery; ADMIT Internal Medicine
PROC: 0J910ZZ Drainage of Face Subcutaneous Tissue and Fascia, Open Approach (ICD-10-PCS; principal; 2018-10-09)
DX: L03.213 Periorbital cellulitis (principal); L02.01 Cutaneous abscess of face; I47.1 Supraventricular tachycardia; F31.9 Bipolar disorder, unspecified; I10 Essential (primary) hypertension; F17.210 Nicotine dependence, cigarettes, uncomplicated; G25.81 Restless legs syndrome; M19.90 Unspecified osteoarthritis, unspecified site; J32.0 Chronic maxillary sinusitis; F12.10 Cannabis abuse, uncomplicated; B95.62 Methicillin resistant Staphylococcus aureus infection as the cause of diseases classified elsewhere; Z87.442 Personal history of urinary calculi; Z82.49 Family history of ischemic heart disease and other diseases of the circulatory system; Z59.0 Homelessness; Z80.7 Family history of other malignant neoplasms of lymphoid, hematopoietic and related tissues; Z79.899 Other long term (current) drug therapy

== ENCOUNTER 2020-03-23 16:25 | Emergency (ER) | payer OTHER ==
[~2020-03-23] VITALS: Ht 162.6 cm; Wt 81.7 kg
[~2020-03-23 16:25] MED LIST changes: +ALEVE220 MG PO; +IBUPROFEN 600600 M1 PO; +LISINOPRIL20 MG PO
[2020-03-23] MEDS ORDERED: ZESTRIL40 MG PO (17:01)
[2020-03-23] MEDS ORDERED: ASA81BEC PO (17:01)
[2020-03-23] MEDS ORDERED: NORVASC5 M1 PO (17:01)
[2020-03-23 17:07] LABS: URINE BILIRUBIN NEGATIVE (Negative); URINE BLOOD TRACE (Negative); URINE CLARITY SL CLOUDY; URINE COLOR YELLOW; URINE GLUCOSE-RANDOM NEGATIVE (Negative); URINE KETONES NEGATIVE (Negative); URINE LEUKOCYTES-REFLEX TRACE (Negative); URINE NITRITE-REFLEX NEGATIVE (Negative); URINE PROTEIN 1+ (Negative); URINE SPECIFIC GRAVITY >= 1.030 (1.005-1.030); URINE UROBILINOGEN 0.2 E.U./dl (0.2-1.0)
[2020-03-23 17:13] LABS: ABSOLUTE BASOPHILS 0.1 thou/uL (0.0-0.2); ABSOLUTE EOSINOPHILS 0.1 thou/uL (0.0-0.7); ABSOLUTE LYMPHOCYTES 2.4 thou/uL (0.8-5.3); ABSOLUTE MONOCYTES 0.7 thou/uL (0.0-1.2); ABSOLUTE NEUTROPHILS 5.5 thou/uL (1.6-8.1); BASOPHILS 1.2 %; EOSINOPHILS 1.3 %; HEMATOCRIT 46.4 % (37.0-47.0); HEMOGLOBIN 16.3 gm/dL (12.0-15.0); LYMPHOCYTES 27.1 %; MCH 30.2 pg (26.0-34.0); MCHC 35.2 g/dL (28.0-37.0); MCV 85.7 fL (80.0-100.0); MONOCYTES 8.1 %; NUCLEATED RBCS 0 /100WBC; PLATELET COUNT* 317 thou/uL (150-400); POLYS 62.3 %; RBC 5.41 mil/uL (4.20-5.00); RDW-CV 14.9 % (10.5-14.5); WBC 8.8 thou/uL (4.0-11.0)
[2020-03-23 17:14] LABS: AMP/METHAMP POSITIVE (Negative); BARBITURATES Negative (Negative); BENZODIAZEPINES Negative (Negative); COCAINE Negative (Negative); METHADONE Negative (Negative); OPIATES Negative (Negative); PCP Negative (Negative); THC Negative (Negative)
[2020-03-23 17:15] LABS: BACTERIA-REFLEX >30 Many /HPF (None Seen)
[2020-03-23 17:16] LABS: SQUAMOUS >10 Many /LPF (0-3); URINE WBC-REFLEX 6-15 Few /HPF (0-5)
[2020-03-23 17:17] LABS: CASTS None Seen /LPF (None Seen); CRYSTALS None Seen /LPF (None Seen); URINE RBC 0-2 Rare /HPF (0-2)
[2020-03-23 17:26] LABS: CALCIUM 9.7 mg/dL (8.5-10.1); CREATININE 1.1 mg/dL (0.6-1.3); POTASSIUM 3.4 mmol/L (3.5-5.1)
[2020-03-23 17:30] LABS: ALBUMIN 4.1 g/dL (3.4-5.0); TOTAL BILIRUBIN 0.6 mg/dL (<0.1-1.0); TOTAL PROTEIN 9.3 g/dL (6.4-8.2)
[2020-03-23 17:35] LABS: ACETAMINOPHEN < 2 ug/mL (10-30); ALCOHOL < 10 mg/dL (<10); SALICYLATE < 2.8 mg/dL (2.8-20.0)
[2020-03-24] MEDS ORDERED: KEFLEX500 M1 PO (07:47)
[2020-03-24 07:52] VITALS: BP 139/85
== END 2020-03-24 07:54 | disposition home or self-care (01) ==
LOC: M.ERS 16:25
PROVIDERS: Emergency Medicine Emergency Medical Services
DX: F22 Delusional disorders (principal); F29 Unspecified psychosis not due to a substance or known physiological condition; F31.9 Bipolar disorder, unspecified; F15.90 Other stimulant use, unspecified, uncomplicated; Z20.828 Contact with and (suspected) exposure to other viral communicable diseases; I10 Essential (primary) hypertension; M19.90 Unspecified osteoarthritis, unspecified site; Z98.890 Other specified postprocedural states; G25.81 Restless legs syndrome; F17.210 Nicotine dependence, cigarettes, uncomplicated; Z87.442 Personal history of urinary calculi; Z79.899 Other long term (current) drug therapy

== ENCOUNTER 2020-04-07 14:42 | Emergency (ER) | payer OTHER ==
[~2020-04-07] VITALS: Ht 162.6 cm; Wt 81.7 kg
[~2020-04-07 14:42] MED LIST changes: +ASA81BEC PO; +NORVASC5 M1 PO; +ZESTRIL40 MG PO
[2020-04-07 16:35] LABS: HEMATOCRIT 40.7 % (37.0-47.0); MCH 29.9 pg (26.0-34.0); MCHC 34.4 g/dL (28.0-37.0); MCV 86.7 fL (80.0-100.0); MPV 8.1 fl. (7.2-11.1); NUCLEATED RBCS 0 /100WBC; PLATELET COUNT* 253 thou/uL (150-400); RBC 4.69 mil/uL (4.20-5.00); RDW-CV 14.7 % (10.5-14.5); WBC 6.2 thou/uL (4.0-11.0)
[2020-04-07 16:43] LABS: CALCIUM 8.8 mg/dL (8.5-10.1); CREATININE 0.9 mg/dL (0.6-1.3); POTASSIUM 3.9 mmol/L (3.5-5.1)
[2020-04-07 16:47] LABS: ALBUMIN 3.3 g/dL (3.4-5.0); TOTAL BILIRUBIN 0.3 mg/dL (<0.1-1.0); TOTAL PROTEIN 7.6 g/dL (6.4-8.2)
[2020-04-07 17:02] LABS: ABSOLUTE EOSINOPHILS 0.6 thou/uL (0.0-0.7); ABSOLUTE LYMPHOCYTES 2.1 thou/uL (0.8-5.3); ABSOLUTE MONOCYTES 0.3 thou/uL (0.0-1.2); ABSOLUTE NEUTROPHILS 3.2 thou/uL (1.6-8.1)
[2020-04-07 17:04] LABS: ANISOCYTOSIS Occasional; PLATELET ESTIMATE ADEQUATE
[2020-04-07] MEDS ORDERED: FLEXERIL PO (18:20)
[2020-04-07 19:28] VITALS: BP 205/100
== END 2020-04-07 19:30 | disposition home or self-care (01) ==
LOC: M.ERS 14:42
PROVIDERS: Emergency Medicine Emergency Medical Services
DX: S06.0X0A Concussion without loss of consciousness, initial encounter (principal); M54.2 Cervicalgia; I10 Essential (primary) hypertension; M19.90 Unspecified osteoarthritis, unspecified site; F17.210 Nicotine dependence, cigarettes, uncomplicated; Z87.442 Personal history of urinary calculi; Z98.890 Other specified postprocedural states; Y08.89XA Assault by other specified means, initial encounter; Y93.89 Activity, other specified; Y92.89 Other specified places as the place of occurrence of the external cause; Y99.8 Other external cause status